=== PATIENT | male | born 1995 | race Caucasian/White ===

== ENCOUNTER 2017-06-01 08:59 | Emergency (ER) | payer OTHER ==
[2017-06-01] MEDS ORDERED: KETOROLAC 30 MG/ML 1 ML VIAL IVP STA (09:27)
[2017-06-01] MEDS ORDERED: SODIUM CHLORIDE 0.9% 1,000 ML IV ONE (09:27)
--- NOTE | 2017-06-01 09:31 | ED ---
Abdominal Pain HPI - General Chief Complaint: Abdominal Pain Stated Complaint: abd pain Time Seen by Provider: 06/01/17 09:09 Source: patient, RN notes reviewed Mode of arrival: ambulatory Limitations: no limitations - History of Present Illness Initial Comments: Patient is a 22-year-old male [facility] abdominal pain. Patient states he's been experiencing abdominal pain for the past month but has gotten worse and has traveled to his lower abdomen yesterday. Patient states while at work he began vomiting. Patient states he is having right upper quadrant, right lower quadrant and left upper quadrant pain. Patient states the pain comes in waves. Patient states he had diarrhea yesterday. Patient denies blood in the stools. Patient denies recent travel outside the country or trying new foods. Patient denies any nausea today. Patient states having 6 out of 10 pain currently. Patient denies fevers or chills. Patient denies any abdominal surgical history. Patient denies taking medications. Patient does state he smokes daily. Patient states he does drink daily. Patient states he drinks about a 24 pack of beer per day and will sometimes drink a half of a fifth of vodka afterwards. - Related Data Previous Rx's Medication Instructions Recorded Famotidine [Pepcid] 20 mg PO DAILY PRN #10 tablet 06/01/17 Allergies Allergy/AdvReac Type Severity Reaction Status Date / Time No Known Allergies Allergy Verified 06/01/17 10:39 Review of Systems ROS Statement: Those systems with pertinent positive or pertinent negative responses have been documented in the HPI. ROS Other: All systems not noted in ROS Statement are negative. Past Medical History Past Medical History: No Reported History History of Any Multi-Drug Resistant Organisms: None Reported Past Surgical History: No Surgical Hx Reported Past Psychological History: Anxiety Smoking Status: Current every day smoker Past Alcohol Use History: Occasional Past Drug Use History: Marijuana General Exam - General Exam Comments Initial Comments: laying in exam room, no distress. Limitations: no limitations General appearance: alert, in no apparent distress Head exam: Present: atraumatic, normocephalic, normal inspection Eye exam: Present: normal appearance ENT exam: Present: normal exam Neck exam: Present: normal inspection Respiratory exam: Present: normal lung sounds bilaterally. Absent: respiratory distress Cardiovascular Exam: Present: regular rate, normal rhythm, normal heart sounds GI/Abdominal exam: Present: soft, tenderness (RUQ, RLQ), normal bowel sounds. Absent: distended, guarding, rebound, rigid Extremities exam: Present: normal inspection Back exam: Present: normal inspection Neurological exam: Present: alert, oriented X3, CN II-XII intact, normal gait Psychiatric exam: Present: normal affect, normal mood Skin exam: Present: warm, dry, intact, normal color. Absent: rash Course Vital Signs 06/01/17 06/01/17 06/01/17 09:01 10:27 10:40 Temperature 97.8 F 98.4 F 98.3 F Pulse Rate 75 61 60 Respiratory 16 16 17 Rate Blood Pressure 140/80 140/78 145/78 O2 Sat by Pulse 100 100 100 Oximetry Medical Decision Making - Medical Decision Making Patient is 22-year-old male presents to the emergency room for evaluation of abdominal pain. Patient does admit to drinking a 24 pack of beer per day along with occasional half fifths of vodka afterwards. KUB x-ray significant for mild amount of fecal material in the colon. Patient be sent home with magnesium citrate. Patient counseled on alcohol abuse. Patient will be sent home with Pepcid for gastritis most likely from alcohol abuse. Advised patient to follow-up with primary care provider. Patient states he understands everything that was discussed with him. Return parameters discussed. Case discussed Dr. Raines. - Lab Data Result diagrams: 06/01/17 09:30 06/01/17 09:30 Lab Results 06/01/17 06/01/17 06/01/17 Range/Units 09:30 09:30 09:40 WBC 5.6 (4.0-11.0) k/uL RBC 5.94 H (4.30-5.90) m/uL Hgb 17.1 (13.0-17.5) gm/dL Hct 50.9 (39.0-53.0) % MCV 85.6 (80.0-100.0) fL MCH 28.8 (25.0-35.0) pg MCHC 33.6 (31.0-37.0) g/dL RDW 13.0 (11.5-15.5) % Plt Count 255 (150-450) k/uL Neutrophils % 64 % Lymphocytes % 27 % Monocytes % 5 % Eosinophils % 1 % Basophils % 0 % Neutrophils # 3.6 (1.3-7.7) k/uL Lymphocytes # 1.5 (1.0-4.8) k/uL Monocytes # 0.3 (0-1.0) k/uL Eosinophils # 0.1 (0-0.7) k/uL Basophils # 0.0 (0-0.2) k/uL Sodium 143 (137-145) mmol/L Potassium 4.4 (3.5-5.1) mmol/L Chloride 109 H (98-107) mmol/L Carbon Dioxide 24 (22-30) mmol/L Anion Gap 10 mmol/L BUN 17 (9-20) mg/dL Creatinine 0.90 (0.66-1.25) mg/dL Est GFR (MDRD) Af Amer >60 (>60 ml/min/1.73 sqM) Est GFR (MDRD) Non-Af >60 (>60 ml/min/1.73 sqM) Glucose 81 (74-99) mg/dL Calcium 9.2 (8.4-10.2) mg/dL Total Bilirubin 0.7 (0.2-1.3) mg/dL AST 24 (17-59) U/L ALT 34 (21-72) U/L Alkaline Phosphatase 86 (38-126) U/L Total Protein 6.6 (6.3-8.2) g/dL Albumin 4.3 (3.5-5.0) g/dL Amylase 42 (30-110) U/L Lipase 48 (23-300) U/L Urine Color Yellow Urine Appearance Clear (Clear) Urine pH 6.0 (5.0-8.0) Ur Specific [place] 1.012 (1.001-1.035) Urine Protein Negative (Negative) Urine Glucose (UA) Negative (Negative) Urine Ketones Negative (Negative) Urine Blood Negative (Negative) Urine Nitrite Negative (Negative) Urine Bilirubin Negative (Negative) Urine Urobilinogen <2.0 (<2.0) mg/dL Ur Leukocyte Esterase Negative (Negative) - Radiology Data Radiology results: report reviewed, image reviewed Disposition Clinical Impression: Constipation, Gastritis, Alcohol abuse Disposition: HOME SELF-CARE Condition: Good Instructions: Gastritis (ED), Constipation (ED), Abuse of Alcohol (ED) Additional Instructions: Take Pepcid daily. Please refrain from drinking alcohol. Take magnesium citrate. Drink plenty of water. Please follow up with primary care provider in 1-2 days. If any new symptom arises or symptoms worsen, return to ER as soon as possible. Prescriptions: Famotidine [Pepcid] 20 mg PO DAILY PRN #10 tablet PRN Reason: Pain Referrals: Malvin Haywood Jr, DO [Primary Care Provider] - 1-2 days Time of Disposition: 10:51
[2017-06-01 09:38] LABS: Basophils % (A) 0 %; CH 28.2; CHCM 33.1; Eosinophils # (A) 0.1 k/uL (0-0.7); Eosinophils % (A) 1 %; HCT 50.9 % (39.0-53.0); HDW 2.28; HGB 17.1 gm/dL (13.0-17.5); Luc # (Auto) 0.09; Luc % (Auto) 2; Lymphocytes # (A) 1.5 k/uL (1.0-4.8); Lymphocytes % (A) 27 %; MCH 28.8 pg (25.0-35.0); MCHC 33.6 g/dL (31.0-37.0); MCV 85.6 fL (80.0-100.0); Mean Platelet Volume 6.4; Monocytes # (A) 0.3 k/uL (0-1.0); Monocytes % (A) 5 %; Neutrophils # (A) 3.6 k/uL (1.3-7.7); Neutrophils % (A) 64 %; RBC 5.94 m/uL (4.30-5.90); WBC 5.6 k/uL (4.0-11.0); WBC (Perox) 5.32
[2017-06-01 09:52] LABS: ALT 34 U/L (21-72); AST 24 U/L (17-59); Alkaline Phosphatase 86 U/L (38-126); Amylase 42 U/L (30-110); Anion Gap 10 mmol/L; Blood Urea Nitrogen 17 mg/dL (9-20); Calcium 9.2 mg/dL (8.4-10.2); Carbon Dioxide 24 mmol/L (22-30); Chloride 109 mmol/L (98-107); Glucose 81 mg/dL (74-99); Non-African American GFR(MDRD) >60 (>60 ml/min/1.73 sqM); Potassium 4.4 mmol/L (3.5-5.1); Sodium 143 mmol/L (137-145); Total Bilirubin 0.7 mg/dL (0.2-1.3); Total Protein 6.6 g/dL (6.3-8.2)
[2017-06-01 09:58] LABS: Appearance,Urine Clear (Clear); Bilirubin,Urine Negative (Negative); Glucose,Urine (UA) Negative (Negative); Ketones,Urine Negative (Negative); Leukocyte Esterase,Urine Negative (Negative); Nitrite,Urine Negative (Negative); Protein,Urine Negative (Negative); Specific Gravity,Urine 1.012 (1.001-1.035); UA Billing (MACRO vs. MICRO) CHEM; Urobilinogen,Urine <2.0 mg/dL (<2.0)
--- NOTE | 2017-06-01 10:17 | XR ---
EXAMINATION TYPE: XR KUB DATE OF EXAM: 06/01/2017 10:11 AM CLINICAL HISTORY: Abdominal pain for 3 months. TECHNIQUE: 2 upright KUB images of the abdomen are obtained. COMPARISON: Abdominal x-ray November 26, 2012. FINDINGS: Gas is seen in nondistended stomach. Scattered gas is seen in non-distended small bowel loo ps. Gas and fecal material is seen in non-distended colon. There is no visceromegaly, pneumoperitoneum, or abnormal calcification appreciated. The lung bases ar e clear and the osseous structures are intact. IMPRESSION: Overall nonobstructive bowel gas pattern.
[2017-06-01 10:40] VITALS: BP 145/78; PULSE 60; RESP 17; TEMP 98.3
[2017-06-01] MEDS ORDERED: MAGNESIUM CITRATE 296 ML BOTTLE PO ONE (10:50)
== END 2017-06-01 11:13 | disposition home or self-care (01) ==
LOC: EC 08:59
DX: K29.20 Alcoholic gastritis without bleeding (principal); F10.10 Alcohol abuse, uncomplicated; K59.00 Constipation, unspecified; F17.200 Nicotine dependence, unspecified, uncomplicated
CPT/HCPCS: 80053; 82150; 83690; 85025; 81003; 74000; 99284; 96374; 96361; J1885

== ENCOUNTER 2018-05-25 23:33 | Emergency (ER) | payer OTHER ==
[2018-05-25 23:47] VITALS: TEMP 98.2
[2018-05-26] MEDS ORDERED: diphenhydrAMINE 50 MG CAP PO STA (00:28)
[2018-05-26] MEDS ORDERED: LORazepam 1 MG TAB PO STA (00:28)
[2018-05-26 00:30] LABS: Appearance,Urine Clear (Clear); Bilirubin,Urine Negative (Negative); Blood,Urine Negative (Negative); Color,Urine Colorless; Glucose,Urine (UA) Negative (Negative); Ketones,Urine Negative (Negative); Leukocyte Esterase,Urine Negative (Negative); Nitrite,Urine Negative (Negative); Protein,Urine Negative (Negative); Specific Gravity,Urine 1.003 (1.001-1.035); Urobilinogen,Urine <2.0 mg/dL (<2.0)
--- NOTE | 2018-05-26 00:30 | ED ---
General Adult HPI - General Chief complaint: Psychiatric Symptoms Stated complaint: Mental Health Time Seen by Provider: 05/25/18 23:51 Source: police, RN notes reviewed, old records reviewed Mode of arrival: ambulatory Limitations: no limitations - History of Present Illness Initial comments: This is a 23-year-old male the ER for evaluation. Patient's brought in by PD for evaluation regarding mental health, positive alcohol intoxication, belligerent, not acting and responding appropriately - Related Data Previous Rx's Medication Instructions Recorded Famotidine [Pepcid] 20 mg PO DAILY PRN #10 tablet 06/01/17 Allergies Allergy/AdvReac Type Severity Reaction Status Date / Time No Known Allergies Allergy Verified 05/25/18 23:47 Review of Systems ROS Statement: Those systems with pertinent positive or pertinent negative responses have been documented in the HPI. ROS Other: All systems not noted in ROS Statement are negative. Past Medical History Past Medical History: No Reported History History of Any Multi-Drug Resistant Organisms: None Reported Past Surgical History: No Surgical Hx Reported Past Psychological History: Anxiety Smoking Status: Current every day smoker Past Alcohol Use History: Occasional Past Drug Use History: Marijuana General Exam Limitations: no limitations General appearance: alert, in no apparent distress, appears intoxicated Head exam: Present: atraumatic, normocephalic, normal inspection Eye exam: Present: normal appearance, PERRL, EOMI. Absent: scleral icterus, conjunctival injection, periorbital swelling ENT exam: Present: normal exam, mucous membranes moist Neck exam: Present: normal inspection. Absent: tenderness, meningismus, lymphadenopathy Respiratory exam: Present: normal lung sounds bilaterally. Absent: respiratory distress, wheezes, rales, rhonchi, stridor Cardiovascular Exam: Present: regular rate, normal rhythm, normal heart sounds. Absent: systolic murmur, diastolic murmur, rubs, gallop, clicks GI/Abdominal exam: Present: soft, normal bowel sounds. Absent: distended, tenderness, guarding, rebound, rigid Extremities exam: Present: normal inspection, full ROM, normal capillary refill. Absent: tenderness, pedal edema, joint swelling, calf tenderness Back exam: Present: normal inspection Neurological exam: Present: alert, oriented X3, CN II-XII intact Psychiatric exam: Present: normal affect, normal mood Skin exam: Present: warm, dry, intact, normal color. Absent: rash Course Vital Signs 05/25/18 23:42 Temperature 98.2 F Pulse Rate 109 H Respiratory 20 Rate Blood Pressure 144/85 O2 Sat by Pulse 100 Oximetry Medical Decision Making - Lab Data Lab Results 05/26/18 Range/Units 00:18 Urine Color Colorless Urine Appearance Clear (Clear) Urine pH 6.0 (5.0-8.0) Ur Specific [place] 1.003 (1.001-1.035) Urine Protein Negative (Negative) Urine Glucose (UA) Negative (Negative) Urine Ketones Negative (Negative) Urine Blood Negative (Negative) Urine Nitrite Negative (Negative) Urine Bilirubin Negative (Negative) Urine Urobilinogen <2.0 (<2.0) mg/dL Ur Leukocyte Esterase Negative (Negative) Urine Opiates Screen Not Detected (NotDetected) Ur Oxycodone Screen Not Detected (NotDetected) Urine Methadone Screen Not Detected (NotDetected) Ur Propoxyphene Screen Not Detected (NotDetected) Ur Barbiturates Screen Not Detected (NotDetected) U Tricyclic Antidepress Not Detected (NotDetected) Ur Phencyclidine Scrn Not Detected (NotDetected) Ur Amphetamines Screen Not Detected (NotDetected) U Methamphetamines Scrn Not Detected (NotDetected) U Benzodiazepines Scrn Not Detected (NotDetected) Urine Cocaine Screen Not Detected (NotDetected) U Marijuana (THC) Screen Detected H (NotDetected) Disposition Clinical Impression: Acute anxiety Disposition: HOME SELF-CARE Condition: Good Instructions: Alcohol Intoxication (ED) Referrals: Malvin Haywood Jr, DO [Primary Care Provider] - 1-2 days
[2018-05-26] MEDS ORDERED: diphenhydrAMINE 50 MG/ML 1 ML VIAL IM STA (00:36)
[2018-05-26] MEDS ORDERED: LORazepam 2 MG/ML INJ IM STA (00:36)
[2018-05-26 00:41] LABS: Amphetamine Screen,Urine Not Detected (NotDetected); Barbiturate Screen,Urine Not Detected (NotDetected); Benzodiazepines Screen,Urine Not Detected (NotDetected); Cocaine Screen,Urine Not Detected (NotDetected); Methadone Screen, Urine Not Detected (NotDetected); Opiate Screen,Urine Not Detected (NotDetected); Oxycodone Screen, Urine Not Detected (NotDetected); Phencyclidine Screen,Urine Not Detected (NotDetected); Tricyclic Antidepressant,Urine Not Detected (NotDetected); Urn Cannabinoid Scrn Detected (NotDetected)
[2018-05-26 04:55] VITALS: BP 99/50; PULSE 66; RESP 16
== END 2018-05-26 04:58 | disposition home or self-care (01) ==
LOC: EC 23:33
DX: F41.9 Anxiety disorder, unspecified (principal); F10.129 Alcohol abuse with intoxication, unspecified; R45.6 Violent behavior; F17.200 Nicotine dependence, unspecified, uncomplicated
CPT/HCPCS: 82075; 81003; 80306; 99284; 96372 ×2; J2060; J1200

== ENCOUNTER 2021-10-07 14:39 | Emergency (ER) | payer OTHER ==
[2021-10-07 16:05] VITALS: BP 122/70; PULSE 72; RESP 17; TEMP 98.2
--- NOTE | 2021-10-07 16:37 | ED ---
Wound/Laceration HPI - General Chief Complaint: Wound/Laceration Stated Complaint: stitches infected Time Seen by Provider: 10/07/21 15:42 Source: patient, RN notes reviewed Mode of arrival: ambulatory Limitations: no limitations - History of Present Illness Initial Comments: Patient is a 26-year-old male that presents to the emergency department with 3 -4-week-old sutures in his left index and middle finger. He notes he had a washout and department at [facility] with a hand specialist by the name of Dr. Gill. Patient notes that he's been unable to get down to [place] for a follow-up visit. Patient denied any other symptoms or complaints. He notes that the sutures just appear to be embedding. He denied any chest pain first breath headache nausea vomiting diarrhea constipation fever fatigue chills. - Related Data Previous Rx's Medication Instructions Recorded Famotidine [Pepcid] 20 mg PO DAILY PRN #10 tablet 06/01/17 Allergies Allergy/AdvReac Type Severity Reaction Status Date / Time No Known Allergies Allergy Verified 10/07/21 15:11 Review of Systems ROS Statement: Those systems with pertinent positive or pertinent negative responses have been documented in the HPI. ROS Other: All systems not noted in ROS Statement are negative. Past Medical History Past Medical History: No Reported History History of Any Multi-Drug Resistant Organisms: MRSA Date of last positivie culture/infection: September 2021 Past Surgical History: No Surgical Hx Reported Additional Past Surgical History / Comment(s): left hand surgery to drain infection Past Psychological History: Anxiety Smoking Status: Current every day smoker Past Alcohol Use History: Daily Past Drug Use History: Marijuana General Exam Limitations: no limitations General appearance: alert, in no apparent distress Head exam: Present: atraumatic, normocephalic, normal inspection Eye exam: Present: normal appearance, PERRL, EOMI. Absent: scleral icterus, conjunctival injection, periorbital swelling ENT exam: Present: normal exam, mucous membranes moist Neck exam: Present: normal inspection. Absent: tenderness, meningismus, lymphadenopathy Respiratory exam: Present: normal lung sounds bilaterally. Absent: respiratory distress, wheezes, rales, rhonchi, stridor Cardiovascular Exam: Present: regular rate, normal rhythm, normal heart sounds. Absent: systolic murmur, diastolic murmur, rubs, gallop, clicks Extremities exam: Present: normal inspection, full ROM, normal capillary refill. Absent: tenderness, pedal edema, joint swelling, calf tenderness Neurological exam: Present: alert, oriented X3 Psychiatric exam: Present: normal affect, normal mood Skin exam: Present: warm, dry, intact, normal color, other (Several healed surgical incisions on the left index and middle finger, no signs or symptoms of infection.). Absent: rash Course Vital Signs 10/07/21 16:05 Temperature 98.2 F Pulse Rate 72 Respiratory 17 Rate Blood Pressure 122/70 O2 Sat by Pulse 99 Oximetry Medical Decision Making - Medical Decision Making 26-year-old male with surgical incision sutures asking for them to be removed. Patient's hand surgeon was contacted. Dr. Gill notes that patient needs to follow-up in office to have sutures removed and surgical incision sites evaluated. Patient was informed of this and is agreeable with discharge home with follow-up to hand surgeon. Case discussed with Dr. Tracey, patient can discharge home. Disposition Clinical Impression: Visit for suture removal Disposition: HOME SELF-CARE Condition: Stable Additional Instructions: Please return to the Emergency Department if symptoms worsen or any other concerns. Follow-up with hand surgeon as soon as possible. Is patient prescribed a controlled substance at d/c from ED?: No Referrals: None,Stated [Primary Care Provider] - 1-2 days Time of Disposition: 16:36
== END 2021-10-07 16:40 | disposition home or self-care (01) ==
LOC: EC 14:39
DX: Z48.02 Encounter for removal of sutures (principal); F41.9 Anxiety disorder, unspecified; F17.200 Nicotine dependence, unspecified, uncomplicated; F12.90 Cannabis use, unspecified, uncomplicated; Z72.89 Other problems related to lifestyle
CPT/HCPCS: 99281

== ENCOUNTER 2022-01-23 00:09 | Emergency (ER) | payer OTHER ==
[2022-01-23 00:34] VITALS: RESP 18
--- NOTE | 2022-01-23 01:11 | ED ---
Psych HPI - General Chief Complaint: Psychiatric Symptoms Stated Complaint: Mental Health Time Seen by Provider: 01/23/22 00:37 Source: patient, RN notes reviewed, old records reviewed Mode of arrival: ambulatory Limitations: no limitations - History of Present Illness Initial Comments: This is a 26-year-old male resents presents to the ER for evaluation of psychiatric illness. Patient is petition by the police psychiatric evaluation not participating history taking currently MD Complaint: suicidal ideation, feels depressed -: unknown Associated Psychiatric Symptoms: depression, suicidal ideation History of same: No Improves With: none Worsens With: none Context: significant life stressor Associated Symptoms: denies other symptoms Treatments Prior to Arrival: placed on mental health hold - Related Data Previous Rx's Medication Instructions Recorded Famotidine [Pepcid] 20 mg PO DAILY PRN #10 tablet 06/01/17 Allergies Allergy/AdvReac Type Severity Reaction Status Date / Time No Known Allergies Allergy Verified 01/23/22 00:34 Review of Systems ROS Statement: Those systems with pertinent positive or pertinent negative responses have been documented in the HPI. ROS Other: All systems not noted in ROS Statement are negative. Past Medical History Past Medical History: No Reported History, Hypertension Additional Past Medical History / Comment(s): CELLULITIS, History of Any Multi-Drug Resistant Organisms: MRSA Date of last positivie culture/infection: September 2021 Past Surgical History: No Surgical Hx Reported Additional Past Surgical History / Comment(s): left hand surgery to drain infection Past Psychological History: Anxiety Smoking Status: Current every day smoker Past Alcohol Use History: Daily Past Drug Use History: Marijuana General Exam Limitations: no limitations General appearance: alert, in no apparent distress Head exam: Present: atraumatic, normocephalic, normal inspection Eye exam: Present: normal appearance, PERRL, EOMI. Absent: scleral icterus, conjunctival injection, periorbital swelling ENT exam: Present: normal exam, mucous membranes moist Neck exam: Present: normal inspection. Absent: tenderness, meningismus, lymphadenopathy Respiratory exam: Present: normal lung sounds bilaterally. Absent: respiratory distress, wheezes, rales, rhonchi, stridor Cardiovascular Exam: Present: regular rate, normal rhythm, normal heart sounds. Absent: systolic murmur, diastolic murmur, rubs, gallop, clicks GI/Abdominal exam: Present: soft, normal bowel sounds. Absent: distended, tenderness, guarding, rebound, rigid Extremities exam: Present: normal inspection, full ROM, normal capillary refill. Absent: tenderness, pedal edema, joint swelling, calf tenderness Back exam: Present: normal inspection Neurological exam: Present: alert, oriented X3, CN II-XII intact Psychiatric exam: Present: normal affect, normal mood Skin exam: Present: warm, dry, intact, normal color. Absent: rash Course Vital Signs 01/23/22 00:30 Temperature 97.8 F Pulse Rate 70 Respiratory 18 Rate Blood Pressure 139/85 O2 Sat by Pulse 98 Oximetry - Reevaluation(s) Reevaluation #1: 01/23/22 02:22 Medical records reviewed 01/23/22 02:22 Medical clear for psychiatric evaluation Medical Decision Making - Medical Decision Making 26 male who was seen and evaluated by psychiatry here in the ER. Patient is not currently homicidal or suicidal contract for safety and can be discharged home Disposition Clinical Impression: Adjustment reaction of adult life, Depression Disposition: HOME SELF-CARE Condition: Fair Instructions (If sedation given, give patient instructions): Mood Disorders (ED) Is patient prescribed a controlled substance at d/c from ED?: No Referrals: None,Stated [Primary Care Provider] - 1-2 days
[2022-01-23 02:54] VITALS: BP 128/78; PULSE 74; TEMP 98.7
== END 2022-01-23 03:02 | disposition home or self-care (01) ==
LOC: EC 00:09
DX: F43.21 Adjustment disorder with depressed mood (principal); F41.9 Anxiety disorder, unspecified; F17.200 Nicotine dependence, unspecified, uncomplicated; F12.90 Cannabis use, unspecified, uncomplicated; Z79.899 Other long term (current) drug therapy
CPT/HCPCS: 82075; 99284

== ENCOUNTER 2022-03-10 09:13 | Emergency (ER) | payer OTHER ==
[2022-03-10 09:31] VITALS: BP 130/64; PULSE 120; RESP 18; TEMP 98
[2022-03-10] MEDS ORDERED: SULFAMETHOX-TMP 800-160MG 1 EACH TAB PO STA (10:15)
--- NOTE | 2022-03-10 10:30 | ED ---
Skin/Abscess/FB HPI - General Chief complaint: Skin/Abscess/Foreign Body Stated complaint: Spider Bite Time Seen by Provider: 03/10/22 10:04 Source: patient Mode of arrival: ambulatory Limitations: no limitations - History of Present Illness Initial comments: Patient is a 26-year-old male presenting with chief complaint of abscess to the back of the neck. Patient states that he has a painful, red, swollen abscess on the back of his neck that he noticed 3 days ago. Patient states he believes it was spider bite as there were 2 small indents in the center. Patient states that last night he was able to drain the wound. He notes pain when laying on his back, admits to pain with range of motion of the neck located at the center of the wound. Denies fever, chills, nausea, vomiting, headache, hearing or vision changes, dysphasia, shortness of breath, chest pain, dizziness, weakness. - Related Data Previous Rx's Medication Instructions Recorded Famotidine [Pepcid] 20 mg PO DAILY PRN #10 tablet 06/01/17 Sulfamethox-Tmp 800-160Mg [Bactrim 1 tab PO Q12HR 7 Days #14 tab 03/10/22 DS 800-160 mg] Allergies Allergy/AdvReac Type Severity Reaction Status Date / Time No Known Allergies Allergy Verified 03/10/22 09:30 Review of Systems ROS Statement: Those systems with pertinent positive or pertinent negative responses have been documented in the HPI. ROS Other: All systems not noted in ROS Statement are negative. Past Medical History Past Medical History: No Reported History, Hypertension Additional Past Medical History / Comment(s): CELLULITIS, History of Any Multi-Drug Resistant Organisms: MRSA Date of last positivie culture/infection: September 2021 Past Surgical History: No Surgical Hx Reported Additional Past Surgical History / Comment(s): left hand surgery to drain infection Past Psychological History: Anxiety Smoking Status: Current every day smoker Past Alcohol Use History: Daily Past Drug Use History: Marijuana General Exam Limitations: no limitations General appearance: alert, in no apparent distress Head exam: Present: atraumatic, normocephalic, normal inspection Eye exam: Present: normal appearance, EOMI. Absent: scleral icterus Neck exam: Present: full ROM, other (5 cm x 5 cm indurated abscess patient admits to previously draining. The center is scabbed. Patient admits to pain when pressure is applied and with certain movements). Absent: meningismus Respiratory exam: Present: normal lung sounds bilaterally. Absent: respiratory distress, wheezes, rales, rhonchi, stridor Cardiovascular Exam: Present: regular rate, normal rhythm, normal heart sounds. Absent: systolic murmur, diastolic murmur, rubs, gallop, clicks Neurological exam: Present: alert, oriented X3, CN II-XII intact Psychiatric exam: Present: normal affect, normal mood Expanded Type of lesion: Present: abscess Distribution of rash: neck Description of rash: Present: size (5 cm x 5 cm), tenderness, erythematous, swelling, indurated. Absent: fluctuant Course Vital Signs 03/10/22 03/10/22 09:30 11:11 Temperature 98 F 98 F Pulse Rate 120 H 120 H Respiratory 18 18 Rate Blood Pressure 130/64 130/64 O2 Sat by Pulse 98 98 Oximetry Medical Decision Making - Medical Decision Making Patient is a 26-year-old male presenting with chief abscess to the back of the neck. Patient states that 3 days ago he noted a tender swollen spot on the back of the neck, on inspection he suspected was a spider bite due to small indentations in the center. Patient states that yesterday he was able to drain as it came to a head. On examination there is a 5 cm x 5 cm indurated abscess on the back of the neck. Patient experiences pain with certain movement due to the pressure applied to the abscess. He is afebrile and on reassessment he is not tachycardic. Unable to drain the abscess today. Patient was given first dose of Bactrim double strength and Tylenol for pain control. Patient was prescribed Bactrim double strength 2 times a day for 7 days. Continue to utilize Motrin, Tylenol, warm compresses. Follow-up with primary care in 1-2 days. Report back to ER if any worsening symptoms. Educated the patient on return parameters and answered all questions. Patient conveyed verbal understanding and agreed to the plan. I discussed this case with my attending Dr. Parker. Disposition Clinical Impression: Abscess Disposition: HOME SELF-CARE Condition: Good Instructions (If sedation given, give patient instructions): Abscess (ED) Additional Instructions: Take medications as prescribed. Utilize Motrin, Tylenol, hot compresses for symptomatic relief. Follow-up with primary care in 1-2 days. Report back to ER if any worsening symptoms, including but not limited to fever, chills, neck stiffness, headache, vision changes, back pain. Prescriptions: Sulfamethox-Tmp 800-160Mg [Bactrim DS 800-160 mg] 1 tab PO Q12HR 7 Days #14 tab Is patient prescribed a controlled substance at d/c from ED?: No Referrals: None,Stated [Primary Care Provider] - 1-2 days Time of Disposition: 10:58
[2022-03-10] MEDS ORDERED: ACETAMINOPHEN TAB 325 MG TAB PO STA (10:42)
== END 2022-03-10 11:11 | disposition home or self-care (01) ==
LOC: EC 09:13
DX: L02.11 Cutaneous abscess of neck (principal); F17.200 Nicotine dependence, unspecified, uncomplicated; F12.90 Cannabis use, unspecified, uncomplicated
CPT/HCPCS: 99282

== ENCOUNTER 2022-05-16 19:24 | Emergency (ER) | payer OTHER ==
[2022-05-16 19:38] VITALS: BP 137/78; PULSE 104; RESP 20; TEMP 98.6
[2022-05-16] MEDS ORDERED: HYDROcodone/APAP 5-325MG 1 EACH TAB PO STA (20:06)
[2022-05-16] MEDS ORDERED: KETOROLAC 15 MG/ML 1 ML VIAL IM STA (20:06)
--- NOTE | 2022-05-16 20:09 | ED ---
Upper Extremity HPI - General Chief Complaint: Extremity Injury, Upper Stated Complaint: R shoulder unknown injury Time Seen by Provider: 05/16/22 19:54 Source: patient, RN notes reviewed Mode of arrival: ambulatory Limitations: no limitations - History of Present Illness Initial Comments: [id number] 27-year-old male who presents to emergency department complaining of pain to his right shoulder. Patient states he went through his pants up this morning and felt pain in the right shoulder which does radiate into the right trapezius area. Pain is exacerbated by movement, alleviated somewhat by rest. Patient has a makeshift sling that he fabricated at home. Patient denies any previous shoulder problems. No headache, no fever or chills, no changes in vision or hearing, no sore throat or difficulty with speech, no neck pain, no chest pain or shortness of breath, no abdominal pain, no nausea or vomiting, no changes in urination or bowel movements, no numbness or tingling, no skin rashes or lesions. MD Complaint: Injury to:: right, shoulder Other Extremity Injury: Shoulder: Right Handedness: right Place: home - Related Data Previous Rx's Medication Instructions Recorded Famotidine [Pepcid] 20 mg PO DAILY PRN #10 tablet 06/01/17 Sulfamethox-Tmp 800-160Mg [Bactrim 1 tab PO Q12HR 7 Days #14 tab 03/10/22 DS 800-160 mg] Cyclobenzaprine [Flexeril] 10 mg PO TID PRN #20 tab 05/16/22 Ibuprofen [Motrin] 600 mg PO Q8HR PRN #30 tab 05/16/22 Allergies Allergy/AdvReac Type Severity Reaction Status Date / Time No Known Allergies Allergy Verified 05/16/22 19:38 Review of Systems ROS Statement: Those systems with pertinent positive or pertinent negative responses have been documented in the HPI. ROS Other: All systems not noted in ROS Statement are negative. Past Medical History Past Medical History: No Reported History, Hypertension Additional Past Medical History / Comment(s): CELLULITIS, History of Any Multi-Drug Resistant Organisms: MRSA Date of last positivie culture/infection: September 2021 Past Surgical History: No Surgical Hx Reported Additional Past Surgical History / Comment(s): left hand surgery to drain infection Past Psychological History: Anxiety Smoking Status: Current every day smoker Past Alcohol Use History: Daily Past Drug Use History: Marijuana General Exam - General Exam Comments Initial Comments: Nontoxic appearing male presents with right shoulder pain, Limitations: no limitations General appearance: alert, in distress (Right shoulder pain) Head exam: Present: atraumatic, normocephalic, normal inspection Eye exam: Present: normal appearance, PERRL, EOMI. Absent: scleral icterus, conjunctival injection, periorbital swelling ENT exam: Present: normal exam, mucous membranes moist Neck exam: Present: normal inspection, full ROM. Absent: tenderness, meningismus, lymphadenopathy Respiratory exam: Present: normal lung sounds bilaterally. Absent: respiratory distress, wheezes, rales, rhonchi, stridor Cardiovascular Exam: Present: regular rate, normal rhythm, normal heart sounds. Absent: systolic murmur, diastolic murmur, rubs, gallop, clicks GI/Abdominal exam: Present: soft, normal bowel sounds. Absent: distended, tenderness, guarding, rebound, rigid Extremities exam: Present: normal inspection, tenderness (Patient has soft tissue tenderness about the right shoulder, also sensitively and the anterior aspect of the shoulder and the proximal bicipital tendon insertion area. No erythema. No break in skin integrity. No edema.), normal capillary refill, other (No bony point tenderness.). Absent: full ROM (Range of motion limited with regards to right shoulder. Limited in all planes.), joint swelling (No proximal or distal tenderness, full cervical range of motion, full range motion at the elbow. Distal pulses are intact), calf tenderness Back exam: Present: normal inspection Neurological exam: Present: alert, oriented X3, CN II-XII intact Psychiatric exam: Present: normal affect, normal mood Skin exam: Present: warm, dry, intact, normal color. Absent: rash Course Vital Signs 05/16/22 19:35 Temperature 98.6 F Pulse Rate 104 H Respiratory 20 Rate Blood Pressure 137/78 O2 Sat by Pulse 99 Oximetry Medical Decision Making - Medical Decision Making Presents to symptomology consistent with right shoulder strain, possible rotator cuff strain versus proximal bicipital tendinitis. Range of motion limited secondary to pain. No evidence of infectious process or vascular compromise. Patient was told to return to the ER for any signs or symptoms worsen. Told to return immediately if any other problems arise. All questions answered. Treatment plan discussed. Patient in agreement Every effort has been made to ensure accuracy of this dictation. However, due to the limitations of electronic medical records and dictation devices, errors in charting still occur. Supervising physicians Dr. Pearl - Radiology Data Radiology results: report reviewed, image reviewed Disposition Clinical Impression: Right shoulder strain Disposition: HOME SELF-CARE Condition: Good Instructions (If sedation given, give patient instructions): Rotator Cuff Injury (ED) Additional Instructions: Home the morning and set up a follow-up appointment with orthopedics. Make sure you do not wear the sling all the time. Take the sling off and moved her arm through gentle range of motion. Apply ice 20 minutes on and off for times daily. Follow-up with your regular physician as directed. Return to the ER immediately if any symptoms worsen, new symptoms arise, or any other problems develop. Is patient prescribed a controlled substance at d/c from ED?: No Referrals: Alexis Mays MD [STAFF PHYSICIAN] - 05/22/22 Time of Disposition: 21:03
--- NOTE | 2022-05-16 20:10 | XR ---
EXAMINATION TYPE: XR shoulder complete RT DATE OF EXAM: 05/16/2022 COMPARISON: NONE HISTORY: Pain TECHNIQUE: Shoulder examined in 3 projections FINDINGS: The humeral head articulates with the glenoid. The acromio-clavicular junction is normal. No acute fractures or dislocations are evident. A follow up study can be performed 7-10 days from acute trauma for continued pain. IMPRESSION: 1. Normal three-view right Shoulder
[2022-05-16] MEDS ORDERED: IBUPROFEN 600 MG STARTER PACK 4 TAB BTL PO STA (20:59)
[2022-05-16] MEDS ORDERED: CYCLOBENZAPRINE 10MG STARTER 3 TAB BTL PO STA (20:59)
[2022-05-16] MEDS ORDERED: ACET/COD 300 MG/30 MG STARTER PACK 6 TAB BTL PO STA (20:59)
== END 2022-05-16 21:36 | disposition home or self-care (01) ==
LOC: EC 19:24
DX: S46.911A Strain of unspecified muscle, fascia and tendon at shoulder and upper arm level, right arm, initial encounter (principal); F17.200 Nicotine dependence, unspecified, uncomplicated; X58.XXXA Exposure to other specified factors, initial encounter
CPT/HCPCS: 73030; 99283; 96372; J1885

== ENCOUNTER 2022-06-14 17:23 | Inpatient (IN) | payer MEDICAID, OTHER ==
[2022-06-14] MEDS ORDERED: LORazepam 2 MG/ML INJ IV STA (18:45)
[2022-06-14 18:53] LABS: Basophils % (A) 1 %; Eosinophils # (A) 0.1 k/uL (0-0.7); Eosinophils % (A) 1 %; HCT 48.8 % (39.0-53.0); HGB 16.2 gm/dL (13.0-17.5); Lymphocytes # (A) 1.7 k/uL (1.0-4.8); Lymphocytes % (A) 26 %; MCH 27.7 pg (25.0-35.0); MCHC 33.2 g/dL (31.0-37.0); MCV 83.6 fL (80.0-100.0); Mean Platelet Volume 6.8; Monocytes # (A) 0.6 k/uL (0-1.0); Monocytes % (A) 9 %; Neutrophils % (A) 61 %; Platelet Count 251 k/uL (150-450); RBC 5.84 m/uL (4.30-5.90); RDW 13.9 % (11.5-15.5); WBC 6.5 k/uL (3.8-10.6)
[2022-06-14 19:02] LABS: African American GFR (CKD) >90 (>60 ml/min/1.73 sqM); Alcohol <10 mg/dL; Anion Gap 14 mmol/L; Blood Urea Nitrogen 23 mg/dL (9-20); Calcium 9.8 mg/dL (8.4-10.2); Carbon Dioxide 22 mmol/L (22-30); Chloride 100 mmol/L (98-107); Glucose 84 mg/dL (74-99); Non-African American GFR(CKD) >90 (>60 ml/min/1.73 sqM); Potassium 4.3 mmol/L (3.5-5.1); Sodium 136 mmol/L (137-145)
--- NOTE | 2022-06-14 19:40 | ED ---
General Adult HPI - General Chief complaint: Psychiatric Symptoms Stated complaint: Mental health Time Seen by Provider: 06/14/22 17:53 Source: patient, RN notes reviewed, old records reviewed Mode of arrival: ambulatory Limitations: no limitations - History of Present Illness Initial comments: Patient is a 27-year-old male with no significant past medical history, family medical history of schizophrenia, who presents in custody from [facility] for psych ev aluation. Patient has a reticulocyte. Has pressured speech. States she is having auditory and visual hallucinations. He endorses suicidal ideations but no attempts. Denies homicidal ideations, plans, attempts. He states he slammed his head multiple times into a cement driveway last night. He has not provide much information. He seems to be having some delusions in addition to the rashes speech. There is concern for acute psychosis. Patient presents petitioned in place custody. The patient states "inmate is highly agitated, labile, hostile, expressing auditory hallucinations, talking to self, self abusive." No previously diagnosed psychiatric illness. Endorses prior history of po lysubstance abuse. He has been clean for 3 years. Endorses occasional alcohol. - Related Data Previous Rx's Medication Instructions Recorded Cyclobenzaprine [Flexeril] 10 mg PO TID PRN #20 tab 05/16/22 Ibuprofen [Motrin] 600 mg PO Q8HR PRN #30 tab 05/16/22 Allergies Allergy/AdvReac Type Severity Reaction Status Date / Time No Known Allergies Allergy Verified 06/14/22 18:36 Review of Systems ROS Statement: Those systems with pertinent positive or pertinent negative responses have been documented in the HPI. Review of Systems: CONST: Denies fever EYES: Denies blurry vision ENT: Denies nasal congestion C/V: Denies Chest pain RESP: Denies shortness of breath GI: Denies abdominal pain : Denies dysuria SKIN: Denies rash. MSK: Denies joint pain. NEURO: Denies headache PSYCH: Denies homicidal ideations/plans/attempts. Endorses both visual and auditory hallucinations. He endorses suicidal ideations. Denies attempts or plans. ROS Other: All systems not noted in ROS Statement are negative. Past Medical History Past Medical History: No Reported History, Hypertension Additional Past Medical History / Comment(s): CELLULITIS, History of Any Multi-Drug Resistant Organisms: MRSA Date of last positivie culture/infection: September 2021 Past Surgical History: No Surgical Hx Reported Additional Past Surgical History / Comment(s): left hand surgery to drain infection Past Psychological History: Anxiety Smoking Status: Current every day smoker Past Alcohol Use History: Daily Past Drug Use History: Marijuana General Exam - General Exam Comments Initial Comments: General: Appears agitated. Pressured speech. Possibly responding to internal stimuli. HEAD: Normal with no signs of head trauma. EYES: PERRLA, EOMI, conjunctiva normal, no discharge. Pupils are 2 mm and equal bilaterally. ENT: Hearing grossly intact, normal oropharynx. RESPIRATORY: Clear breath sounds bilaterally. No wheezes, rales, or rhonchi. C/V: Tachycardic with a regular rhythm. S1 and S2 auscultated. Peripheral pulses 2+ and intact throughout. ABD: Abd is soft, nontender, nondistended EXT: Normal range of motion, no obvious deformity no midline cervical, thoracic, lumbar spine tenderness to palpation. SKIN: No rashes or lesions observed on exposed skin. Mild bruising located o joel the posterior scalp, where he states he has had against the wall. Mild contusion over the forehead. NEURO: Alert and oriented x 3. No focal sensory or strength deficits. Limitations: no limitations Course Vital Signs 06/14/22 06/14/22 17:32 21:20 Temperature 98.2 F Pulse Rate 115 H Respiratory 22 16 Rate Blood Pressure 151/104 O2 Sat by Pulse 100 96 Oximetry Medical Decision Making - Medical Decision Making Based on the patient's presentation and physical exam, does appear the patient is having acute psychosis. Sitter was ordered. Suicide precautions were placed. Has no history of psychiatric illness, and therefore we will obtain basic labs as well as CT brain and C-spine with the recent self injuring behavior. He'll be given Ativan as he states he is extremely anxious. Patient is in agreement this plan. Vital signs are within normal limits. Slightly tachycardic, likely secondary to agitation. Laboratory studies are remarkable for a negative alcohol level. UDS is pending at this time. CT imaging shows no acute intracranial process and no acute cervical spine injury. At this time patient is medically cleared for evaluation by psychiatry. Disposition is pending psychiatric evaluation. He remains in police custody at this time. EPS evaluated the patient. Determined he needs inpatient psychiatric criteria. Certification was completed by myself. Patient was admitted to inpatient psych in stable condition. - Lab Data Result diagrams: 06/14/22 18:45 06/14/22 18:45 Lab Results 06/14/22 06/14/22 06/14/22 Range/Units 18:45 18:45 20:36 WBC 6.5 (3.8-10.6) k/uL RBC 5.84 (4.30-5.90) m/uL Hgb 16.2 (13.0-17.5) gm/dL Hct 48.8 (39.0-53.0) % MCV 83.6 (80.0-100.0) fL MCH 27.7 (25.0-35.0) pg MCHC 33.2 (31.0-37.0) g/dL RDW 13.9 (11.5-15.5) % Plt Count 251 (150-450) k/uL MPV 6.8 Neutrophils % 61 % Lymphocytes % 26 % Monocytes % 9 % Eosinophils % 1 % Basophils % 1 % Neutrophils # 4.0 (1.3-7.7) k/uL Lymphocytes # 1.7 (1.0-4.8) k/uL Monocytes # 0.6 (0-1.0) k/uL Eosinophils # 0.1 (0-0.7) k/uL Basophils # 0.0 (0-0.2) k/uL Sodium 136 L (137-145) mmol/L Potassium 4.3 (3.5-5.1) mmol/L Chloride 100 (98-107) mmol/L Carbon Dioxide 22 (22-30) mmol/L Anion Gap 14 mmol/L BUN 23 H (9-20) mg/dL Creatinine 1.05 (0.66-1.25) mg/dL Est GFR (CKD-EPI)AfAm >90 (>60 ml/min/1.73 sqM) Est GFR (CKD-EPI)NonAf >90 (>60 ml/min/1.73 sqM) Glucose 84 (74-99) mg/dL Calcium 9.8 (8.4-10.2) mg/dL Serum Alcohol <10 mg/dL Coronavirus (PCR) Not Detected (Not Detectd) Disposition Clinical Impression: Encounter for psychiatric assessment, Acute psychosis Disposition: ADMITTED IP TO THIS HOSP Condition: Stable
--- NOTE | 2022-06-14 20:13 | CT ---
EXAMINATION TYPE: CT brain reeseine wo con DATE OF EXAM: 06/14/2022 COMPARISON: NONE HISTORY: Pain after trauma CT DLP: 1353.2 mGycm. Automated Exposure Control for Dose Reduction was Utilized. TECHNIQUE: CT scan of the head and cervical spine are performed without contrast. FINDINGS: There is no acute intracranial hemorrhage, mass effect, or midline shift identified. The ventricles and sulci are within normal limits in size. The globes are intact and the visualized sin uses are clear. Cervical spine is visualized in its entirety from C1 through upper thoracic levels and demonstrates s atisfactory alignment without evidence of acute fracture or dislocation. Prevertebral soft tissue ap pears within normal limits. The C1-C2 articulation is unremarkable. IMPRESSION: 1. There is no acute fracture or dislocation evident in the cervical spine. 2. No acute intracranial hemorrhage, mass effect, or midline shift is seen.
[2022-06-14] MEDS ORDERED: HALOPERIDOL LACTATE 5 MG/ML 1 ML VIAL IM PRN (21:16)
[2022-06-14] MEDS ORDERED: MAGNESIUM HYDROXIDE 2,400 MG/10 ML CUP PO PRN (21:16)
[2022-06-14] MEDS ORDERED: ACETAMINOPHEN TAB 325 MG TAB PO PRN (21:16)
[2022-06-14] MEDS ORDERED: MAG HYDROX/AL HYDROX/SIMETH 30 ML CUP PO PRN (21:16)
[2022-06-14] MEDS ORDERED: LORazepam 2 MG/ML INJ IM PRN (21:19)
[2022-06-15] MEDS: NICOTINE 14MG/24HR PATCH TRANSDERM SCH (03:52)
[2022-06-15] MEDS: LORazepam 1 MG TAB PO PRN ×2 (03:53→16:41)
[2022-06-15] MEDS: haloperidoL 5 MG TAB PO PRN ×2 (04:08→16:41)
[2022-06-15] MEDS ORDERED: chlorproMAZINE 25 MG TAB PO STA (05:19)
[2022-06-15] MEDS ORDERED: chlorproMAZINE 25 MG/ML 2 ML AMP IM PRN (05:19)
[2022-06-15] MEDS ORDERED: diphenhydrAMINE 50 MG CAP PO PRN (05:22)
[2022-06-15] MEDS ORDERED: diphenhydrAMINE 50 MG/ML 1 ML VIAL IM PRN (05:22)
--- NOTE | 2022-06-15 14:10 | P.HP ---
Psychiatric H&P - . H&P Date: 06/15/22 History & Physical: Allergies Allergy/AdvReac Type Severity Reaction Status Date / Time No Known Allergies Allergy Verified 06/15/22 00:39 Vital Signs Temp 97.7 F 06/15/22 14:05 Pulse 93 06/15/22 14:05 Resp 16 06/15/22 14:05 BP 130/69 06/15/22 14:05 Pulse Ox 97 06/15/22 14:05 FiO2 Intake & Output 06/14/22 06/15/22 06/15/22 18:59 06:59 18:59 Weight 74.843 kg 74.843 kg Laboratory Last Values WBC 6.5 k/uL (3.8-10.6) 06/14/22 18:45 RBC 5.84 m/uL (4.30-5.90) 06/14/22 18:45 Hgb 16.2 gm/dL (13.0-17.5) 06/14/22 18:45 Hct 48.8 % (39.0-53.0) 06/14/22 18:45 MCV 83.6 fL (80.0-100.0) 06/14/22 18:45 MCH 27.7 pg (25.0-35.0) 06/14/22 18:45 MCHC 33.2 g/dL (31.0-37.0) 06/14/22 18:45 RDW 13.9 % (11.5-15.5) 06/14/22 18:45 Plt Count 251 k/uL (150-450) 06/14/22 18:45 MPV 6.8 06/14/22 18:45 Neutrophils % 61 % 06/14/22 18:45 Lymphocytes % 26 % 06/14/22 18:45 Monocytes % 9 % 06/14/22 18:45 Eosinophils % 1 % 06/14/22 18:45 Basophils % 1 % 06/14/22 18:45 Neutrophils # 4.0 k/uL (1.3-7.7) 06/14/22 18:45 Lymphocytes # 1.7 k/uL (1.0-4.8) 06/14/22 18:45 Monocytes # 0.6 k/uL (0-1.0) 06/14/22 18:45 Eosinophils # 0.1 k/uL (0-0.7) 06/14/22 18:45 Basophils # 0.0 k/uL (0-0.2) 06/14/22 18:45 Sodium 136 mmol/L (137-145) L 06/14/22 18:45 Potassium 4.3 mmol/L (3.5-5.1) 06/14/22 18:45 Chloride 100 mmol/L (98-107) 06/14/22 18:45 Carbon Dioxide 22 mmol/L (22-30) 06/14/22 18:45 Anion Gap 14 mmol/L 06/14/22 18:45 BUN 23 mg/dL (9-20) H 06/14/22 18:45 Creatinine 1.05 mg/dL (0.66-1.25) 06/14/22 18:45 Est GFR (CKD-EPI)AfAm >90 (>60 ml/min/1.73 sqM) 06/14/22 18:45 Est GFR (CKD-EPI)NonAf >90 (>60 ml/min/1.73 sqM) 06/14/22 18:45 Glucose 84 mg/dL (74-99) 06/14/22 18:45 Calcium 9.8 mg/dL (8.4-10.2) 06/14/22 18:45 Serum Alcohol <10 mg/dL 06/14/22 18:45 Coronavirus (PCR) Not Detected (Not Detectd) 06/14/22 20:36 06/15/22 14:10 IDENTIFYING DATA: Patient is a single, unemployed, 27-year-old male with significant history of polysubstance abuse who presented to the hospital for acute psychotic behavior. HPI: Patient presented to the hospital from longterm due to erratic behaviors and auditory hallucinations. The patient was brought to longterm after police were notified for possible mental health crisis. The patient apparently was noted to be banging his head constantly on the concrete driveway. The police ended up arresting the patient as he had an outstanding warrant for carrying a concealed weapon. The patient reportedly has been hearing voices for many months and has been trying to get help. The patient has been in the ED twice this year for mental health evaluation. When evaluated in the emergency department by the EPS nurse, the patient was noted to be aggressive and crying. He endorsed auditory hallucinations. When admitted to the psychiatric unit, the patient did have an episode of agitation where he began to bang his head constantly on the wall and was reportedly extremely paranoid. He kept screaming at "[place]." He constantly stated that "if they come after me I will bite their throats until they bleed to ." He was noted to be screaming and yelling loudly. The patient received Thorazine and Benadryl. Upon evaluation by this provider, the patient reports that he is upset that police have been involved and that they had no right to arrest him. He does report that he has been experiencing psychotic symptoms and auditory hallucinations earlier this year and has been trying to get help for this. He reports that the auditory hallucinations began worsening significantly after he was incarcerated prior to this admission. The patient reports that his mental health has been in decline over the last 2 years after his fianc and child left him. He reports they left him due to his substance abuse. He reports that he was engaging in heavy methamphetamine and opiate abuse up until 2 years ago. Currently, the patient is denying any suicidal or homicidal ideation, intention, and/or plan however states that if police were to come and pick him up, that he will "bite them and one of them will if they try taking me." The patient is agreeable to medications at this time. PAST PSYCHIATRIC HISTORY: Patient states that he has no previous psychiatric history. Patient denies being on any psychiatric medications. Patient denies any previous psychiatric hospitalizations. Patient denies any psychiatric outpatient follow-up. Patient denies any history of suicide attempts in the past. PMH: Past Medical History: No Reported History, Hypertension Additional Past Medical History / Comment(s): CELLULITIS, History of Any Multi-Drug Resistant Organisms: MRSA Date of last positivie culture/infection: September 2021 Past Surgical History: No Surgical Hx Reported Additional Past Surgical History / Comment(s): left hand surgery to drain infection Past Psychological History: Anxiety Smoking Status: Current every day smoker Past Alcohol Use History: Daily Past Drug Use History: Marijuana ALLERGIES: NO KNOWN DRUG ALLERGIES CHEMICAL DEPENDENCY HISTORY: Patient reports a history of methamphetamine and opiate abuse 2 years ago. He currently denies any substance use. Reports tobacco use. He denies any illicit drug use. FAMILY PSYCHIATRIC/SUBSTANCE USE HISTORY: Patient reportedly has uncles who have been diagnosed with schizophrenia SOCIAL HISTORY: Patient is currently in longterm hold due to unlawful possession of a firearm. Patient is reportedly single. Social history was limited to the patient's initial presentation as he was quite fatigued after receiving Thorazine and Benadryl last night. MENTAL STATUS EXAM: General Appearance: Patient appears to be stated age is alert, directable, and attempts to cooperate. Patient appears to have a slightly disheveled hygiene and grooming. The patient has multiple tattoos including a swastika on his finger Behavior: Patient displays psychomotor agitation. Speech: Patient's speech is fluent and nonpressured. Mood/Affect: Patient reports their mood is "pissed off." Affect is unpredictable and angry. Suicidality/Homicidality: Patient is currently denying any suicidal ideation. He reports homicidal ideation towards police. Perceptions: Patient denies any visual hallucinations and denies any auditory hallucinations Though content/process: There is no evidence of any delusional thought content and thought process is linear and goal-directed. Memory and concentration: AOX3, grossly intact for the purposes of this session. Can spell "WORLD" backwards Judgment and insight: poor STRENGTHS/WEAKNESSES: Unable to identify patient's strengths at this time. Weakness is that the patient is currently longterm hold and displays and endorses significant antisocial behaviors. INTELLECT: average IMPRESSIONS: Brief psychotic episode versus schizophreniform Rule out Antisocial personality disorder / Oppositional Defiant Disorder PLAN: -Patient is admitted under voluntary status to [facility] for stabilization of psychiatric symptoms and safety. Patient signed adult voluntary form and medication consent and is placed in patient's chart. -RECOMMENDED DO NOT INFORM OF [facility] HOLD. PATIENT IS VERY REACTIVE AND HOMICIDAL TOWARDS POLICE. This does not appear to be due to psychotic pathology but rather antisocial behavior. -Medications : Will start patient on Thorazine 50 mg by mouth twice a day for acute psychosis -Ativan and Thorazine PRN for agitation/aggression -Patient was counselled on substance abuse and desired to cut back on use -Patient was informed of the risks, benefits and side effects of the medication and patient verbally consented to taking the medications. Patient signed med consent form and was placed in chart. -Internal Medicine consult to perform medical evaluation and physical. -NRT - nicotine patch -SW on board for discharge planning. Encourage patient to participate in groups to work on coping skills. 06/15/22 14:10
[2022-06-15 14:21] LABS: Basophils % (A) 1 %; Eosinophils # (A) 0.1 k/uL (0-0.7); Eosinophils % (A) 2 %; HCT 48.5 % (39.0-53.0); HGB 15.7 gm/dL (13.0-17.5); Lymphocytes # (A) 1.5 k/uL (1.0-4.8); Lymphocytes % (A) 42 %; MCH 27.1 pg (25.0-35.0); MCHC 32.3 g/dL (31.0-37.0); MCV 83.8 fL (80.0-100.0); Mean Platelet Volume 6.9; Monocytes # (A) 0.3 k/uL (0-1.0); Monocytes % (A) 8 %; Neutrophils # (A) 1.6 k/uL (1.3-7.7); Neutrophils % (A) 46 %; Platelet Count 226 k/uL (150-450); RBC 5.79 m/uL (4.30-5.90); RDW 13.6 % (11.5-15.5); WBC 3.6 k/uL (3.8-10.6)
[2022-06-15 14:35] LABS: ALT 21 U/L (4-49); AST 28 U/L (17-59); African American GFR (CKD) >90 (>60 ml/min/1.73 sqM); Albumin 4.6 g/dL (3.5-5.0); Alkaline Phosphatase 77 U/L (38-126); Anion Gap 11 mmol/L; Bilirubin, Delta 0.2 mg/dL (0.0-0.2); Bilirubin,Unconjugated 1.2 mg/dL (0.0-1.1); Blood Urea Nitrogen 19 mg/dL (9-20); Calcium 8.9 mg/dL (8.4-10.2); Carbon Dioxide 20 mmol/L (22-30); Chloride 104 mmol/L (98-107); Glucose 90 mg/dL (74-99); Non-African American GFR(CKD) >90 (>60 ml/min/1.73 sqM); Potassium 4.2 mmol/L (3.5-5.1); Sodium 135 mmol/L (137-145); Total Bilirubin 1.4 mg/dL (0.2-1.3); Total Protein 7.2 g/dL (6.3-8.2)
[2022-06-15 16:49] LABS: Appearance,Urine Clear (Clear); Bilirubin,Urine Negative (Negative); Blood,Urine Negative (Negative); Color,Urine Yellow; Glucose,Urine (UA) Negative (Negative); Ketones,Urine Trace (Negative); Leukocyte Esterase,Urine Negative (Negative); Nitrite,Urine Negative (Negative); Protein,Urine Negative (Negative); Specific Gravity,Urine 1.018 (1.001-1.035); Urobilinogen,Urine <2.0 mg/dL (<2.0)
--- NOTE | 2022-06-15 17:07 | P.HPMEDMHU ---
History of Present Illness H&P Date: 06/15/22 Chief Complaint: Patient admitted to the psych unit for psychotic episode Patient is a 27-year-old male with a past medical history of schizophrenia who was admitted to the psych unit for psychotic episode. Patient currently states that he just took his medications. Patient appears calm. Patient denies any shortness of breath chest pain nausea vomiting or diarrhea. Review of Systems 10 ROS reviewed and are negative except as noted in HPI Past Medical History Past Medical History: No Reported History, Hypertension Additional Past Medical History / Comment(s): CELLULITIS, History of Any Multi-Drug Resistant Organisms: MRSA Date of last positivie culture/infection: September 2021 MDRO Source:: L hand Past Surgical History: No Surgical Hx Reported Additional Past Surgical History / Comment(s): left hand surgery to drain infection Smoking Status: Current every day smoker Medications and Allergies Home Medications Medication Instructions Recorded Confirmed Type Cyclobenzaprine [Flexeril] 10 mg PO TID PRN #20 tab 05/16/22 06/14/22 Rx Ibuprofen [Motrin] 600 mg PO Q8HR PRN #30 tab 05/16/22 06/14/22 Rx Allergies Allergy/AdvReac Type Severity Reaction Status Date / Time No Known Allergies Allergy Verified 06/15/22 00:39 Physical Exam Osteopathic Statement: *. No significant issues noted on an osteopathic structural exam other than those noted in the History and Physical/Consult. Vitals: Vital Signs Temp Pulse Pulse Resp BP BP Pulse Ox 06/15/22 14:05 97.7 F 93 16 130/69 97 06/15/22 13:50 43 L 12 83/46 98 06/14/22 21:30 97.4 F L 72 18 113/83 98 06/14/22 21:20 16 96 06/14/22 17:32 98.2 F 115 H 22 151/104 100 General: [Alert and oriented, well nourished, no acute distress]. Eye: [PERRL, EOMI, normal conjunctiva]. HENT: [Normocephalic, clear tympanic membranes, normal hearing, moist oral mucosa, no scleral icterus, no sinus tenderness]. Neck: [Supple, non-tender, no carotid bruits, no JVD, no lymphadenopathy]. Lungs: [Clear to auscultation and percussion, non-labored respiration]. Heart: [Normal rate, regular rhythm, no murmur, gallop or edema]. Abdomen: [Soft, non-tender, non-distended, normal bowel sounds, no masses]. Musculoskeletal: [Normal range of motion and strength, no tenderness or swelling]. Skin: [Skin is warm, dry and pink, no rashes or lesions]. Neurologic: [Awake, alert, and oriented X3, CN II-XII intact]. Psychiatric: [Cooperative, appropriate mood and affect]. Cranial Nerve Examination - Cranial Nerves Cranial Nerve I- Olfactory: Intact Cranial Nerve II- Optic: Intact Cranial Nerve III- Oculomotor: Intact Cranial Nerve IV- Trochlear: Intact Cranial Nerve V- Trigeminal: Intact Cranial Nerve - Abducens: Intact Cranial Nerve VII- Facial: Intact Cranial Nerve VIII- Auditory: Intact Cranial Nerve IX- Glossopharyngeal: Intact Cranial Nerve X- Vagus: Intact Cranial Nerve XI- Accessory: Intact Cranial Nerve XII- Hypoglossal: Intact Results CBC & Chem 7: 06/15/22 13:45 06/15/22 13:32 Labs: Abnormal Lab Results - Last 24 Hours (Table) 06/14/22 06/15/22 06/15/22 Range/Units 18:45 13:32 13:45 WBC 3.6 L (3.8-10.6) k/uL Sodium 136 L 135 L (137-145) mmol/L Carbon Dioxide 20 L (22-30) mmol/L BUN 23 H (9-20) mg/dL Total Bilirubin 1.4 H (0.2-1.3) mg/dL Unconjugated Bilirubin 1.2 H (0.0-1.1) mg/dL TSH 0.320 L (0.465-4.680) mIU/L Urine Ketones (Negative) 06/15/22 Range/Units 16:44 WBC (3.8-10.6) k/uL Sodium (137-145) mmol/L Carbon Dioxide (22-30) mmol/L BUN (9-20) mg/dL Total Bilirubin (0.2-1.3) mg/dL Unconjugated Bilirubin (0.0-1.1) mg/dL TSH (0.465-4.680) mIU/L Urine Ketones Trace H (Negative) Thrombosis Risk Factor Assmnt - Choose All That Apply Any of the Below Risk Factors Present?: No Other Risk Factors: No Other congenital or acquired thrombophilia - If yes, enter type in comment: No Thrombosis Risk Factor Assessment Level: Very Low Risk Assessment and Plan Assessment: Acute psychosis with auditory hallucination -Your psychiatric management Mild leukopenia -Patient has no signs or symptoms of infection. No further workup needed at this time. Follow up outpatient with PCP Low TSH -Check free T4 level Thank you for the consult. Please do not hesitate to contact us with any questions
[2022-06-15] MEDS: chlorproMAZINE 25 MG TAB PO SCH (21:04)
[2022-06-16 00:29] LABS: Chol/HDL Ratio 3.75 Ratio; LDL Cholesterol,Calculated 91.6 mg/dL (0.0-131.0); VLDL Calculation 12.52 mg/dL (5.00-40.00)
[2022-06-16] MEDS: chlorproMAZINE 25 MG TAB PO SCH (08:27)
[2022-06-16] MEDS: NICOTINE 14MG/24HR PATCH TRANSDERM SCH (08:27)
--- NOTE | 2022-06-16 12:26 | P.PN ---
Subjective Progress Note Date: 06/16/22 Principal diagnosis: Brief reactive psychosis antisocial personality Subjective the patient says that he lives in a volatile situation. His girlfriend has a brain tumor the keeps growing back. The tumor causes hallucinations and agitation. He is also easily agitated and he broken off with his girlfriend until he gets more stable. So that when she has her ups and downs he doesn't have ups and downs with her. So he is committed to trying to get some help. He is somewhat lethargic and says he hasn't slept well for a couple of days but he was fast asleep when I came to see him at noon. Objective: He is on Thorazine 50 mg twice a day tolerated fairly well and he is prior sleepy in [place] because he has been sleeping and now is starting to slow down a little. He was lethargic but he came to talk to me that to sit on the edge of the bed for a little bit to get his balance. He says I can't talk very well now because I'm still half-asleep. He denies any psychotic symptoms any years to hurt anybody including himself. Assessment I think that Thorazine is helping we will pry need to move it all to the evening so is not too sleepy but it could be that he is just finally slowing down enough to get into and with his exhaustion. Plan: No change for now I'll talk to him tomorrow we may adjust the Thorazine some. He is okay was taking Thorazine and uncles schizophrenic who took Thorazine and did well. Objective - Vital Signs Vital signs: Vital Signs Temp 97.7 F 06/15/22 14:05 Pulse 93 06/15/22 14:05 Resp 16 06/15/22 14:05 BP 130/69 06/15/22 14:05 Pulse Ox 97 06/15/22 14:05 FiO2 - Labs CBC & Chem 7: 06/15/22 13:45 06/15/22 13:32 Labs: Abnormal Lab Results - Last 24 Hours (Table) 06/15/22 06/15/22 06/15/22 Range/Units 13:32 13:45 16:44 WBC 3.6 L (3.8-10.6) k/uL Sodium 135 L (137-145) mmol/L Carbon Dioxide 20 L (22-30) mmol/L Total Bilirubin 1.4 H (0.2-1.3) mg/dL Unconjugated Bilirubin 1.2 H (0.0-1.1) mg/dL HDL Cholesterol 37.90 L (40.00-60.00) mg/dL TSH 0.320 L (0.465-4.680) mIU/L Urine Ketones Trace H (Negative)
[2022-06-16] MEDS: LORazepam 1 MG TAB PO PRN ×2 (13:43→18:44)
[2022-06-16] MEDS: haloperidoL 5 MG TAB PO PRN ×2 (13:43→18:44)
[2022-06-16] MEDS: BENZTROPINE 2 MG/2 ML AMP IM SCH ×2 (15:15→15:21)
--- NOTE | 2022-06-16 15:16 | P.PN ---
Subjective Progress Note Date: 06/16/22 Principal diagnosis: Brief reactive psychosis antisocial personality Subjective the patient says that he lives in a volatile situation. His girlfriend has a brain tumor the keeps growing back. The tumor causes hallucinations and agitation. He is also easily agitated and he broken off with his girlfriend until he gets more stable. So that when she has her ups and downs he doesn't have ups and downs with her. So he is committed to trying to get some help. He is somewhat lethargic and says he hasn't slept well for a couple of days but he was fast asleep when I came to see him at noon. Objective: He is on Thorazine 50 mg twice a day tolerated fairly well and he is prior sleepy in [place] because he has been sleeping and now is starting to slow down a little. He was lethargic but he came to talk to me that to sit on the edge of the bed for a little bit to get his balance. He says I can't talk very well now because I'm still half-asleep. He denies any psychotic symptoms any years to hurt anybody including himself. Assessment I think that Thorazine is helping we will pry need to move it all to the evening so is not too sleepy but it could be that he is just finally slowing down enough to get into and with his exhaustion. Plan: No change for now I'll talk to him tomorrow we may adjust the Thorazine some. He is okay was taking Thorazine and uncles schizophrenic who took Thorazine and did well. The patient came up to me in the [place] and wanted to talk some more. He had some very carrasco things to say. He said "most people always focusing getting out here but I want to focus on doing well" however after talking for a while very logically and calmly he said he started to have a strange feeling in his tongue was getting sick I didn't see any signs of ALLERGIC reaction think he is having EPS from the Thorazine so got a hold the Thorazine give him a shot of Cogentin in the morning we'll try a different antipsychotic Objective - Vital Signs Vital signs: Vital Signs Temp 97.7 F 06/15/22 14:05 Pulse 93 06/15/22 14:05 Resp 16 06/15/22 14:05 BP 130/69 06/15/22 14:05 Pulse Ox 97 06/15/22 14:05 FiO2 - Labs CBC & Chem 7: 06/15/22 13:45 06/15/22 13:32 Labs: Abnormal Lab Results - Last 24 Hours (Table) 06/15/22 06/15/22 Range/Units 13:32 16:44 HDL Cholesterol 37.90 L (40.00-60.00) mg/dL Urine Ketones Trace H (Negative)
[2022-06-16] MEDS ORDERED: BENZTROPINE 2 MG/2 ML AMP IM PRN (17:29)
[2022-06-16 18:27] LABS: Urine Alcohol Negative (Negative); Urine Barbiturate Negative (Negative); Urine Cocaine Negative (Negative); Urine Methadone Negative (Negative); Urine Opiates Negative (Negative); Urine Phencyclidine Negative (Negative)
[2022-06-16] MEDS ORDERED: BENZTROPINE 2 MG/2 ML AMP IM ONE (19:39)
[2022-06-17] MEDS: NICOTINE 14MG/24HR PATCH TRANSDERM SCH (08:18)
--- NOTE | 2022-06-17 10:41 | P.PN ---
Subjective Progress Note Date: 06/17/22 Principal diagnosis: Brief reactive psychosis antisocial personality Subjective: The patient talked to his girlfriend and they worked out an arrangement where they're not likely to trigger each other. She'll be living with her mom he'll have his own place just get together for enjoyment and fellowship he does feel that the medicine has been helpful even though it caused EPS. He was taking both when necessary Haldol and Thorazine and were not sure which one didn't but he had a lot of trouble with thick tongue however he says that he feels a lot calmer now and would like to take something for a while. He says that he was able to sleep last night Objective: He is on Thorazine 50 mg twice a day tolerated fairly well and he is prior sleepy in [place] because he has been sleeping and now is starting to slow down a little. He was lethargic but he came to talk to me that to sit on the edge of the bed for a little bit to get his balance. He says I can't talk very well now because I'm still half-asleep. He denies any psychotic symptoms any years to hurt anybody including himself. Assessment: I do think this is brief reactive psychosis but I think he should continue some medicine at least for a couple weeks during transition and then see if he can come off now I'll talk to him tomorrow we may adjust the Thorazine some. He is okay was taking Thorazine and uncles schizophrenic who took Thorazine and did well. Plan: We will discontinue, when necessary Haldol, give him some Abilify 5 now and then 5 mg each morning. Objective - Vital Signs Vital signs: Vital Signs Temp 98.5 F 06/17/22 09:37 Pulse 103 H 06/17/22 09:37 Resp 16 06/17/22 09:37 BP 108/62 06/17/22 09:37 Pulse Ox 97 06/15/22 14:05 FiO2 Intake & Output 06/16/22 06/17/22 06/17/22 18:59 06:59 18:59 Weight 73.7 kg - Labs CBC & Chem 7: 06/15/22 13:45 06/15/22 13:32 Labs: Abnormal Lab Results - Last 24 Hours (Table) 07/29/22 Range/Units 16:44 Ur Amphetamine Screen Positive A (Negative) U Cannabinoids Screen Positive A (Negative)
[2022-06-17] MEDS ORDERED: diphenhydrAMINE 50 MG/ML 1 ML VIAL ONE (16:25)
[2022-06-17 16:31] VITALS: RESP 14
[2022-06-18 07:02] VITALS: BP 110/63; PULSE 63; TEMP 97.9
[2022-06-18] MEDS: NICOTINE 14MG/24HR PATCH TRANSDERM SCH (08:25)
[2022-06-18] MEDS ORDERED: ARIPiprazole 5 MG TAB PO SCH (09:00)
--- NOTE | 2022-06-18 12:44 | P.DS ---
Providers Date of admission: 06/14/22 21:09 Expected date of discharge: 06/18/22 Attending physician: Keith Hopper MD Consults: 06/14/22 21:16 Consult Physician Routine Consulting Provider: Nat Frazier Consult Reason/Comments: medical H&P Do you want consulting provider notified?: Yes Primary care physician: Stated None - Discharge Diagnosis(es) (1) Brief psychotic disorder Current Visit: Yes Status: Acute Priority: High (2) Amphetamine abuse Current Visit: Yes Status: Acute Priority: High (3) Tobacco use disorder Current Visit: Yes Status: Chronic Priority: Medium (4) Cannabis use disorder Current Visit: Yes Status: Chronic Priority: Medium Hospital Course: Admission HPI: Patient is a single, unemployed, 27-year-old male with significant history of polysubstance abuse who presented to the hospital for acute psychotic behavior. Patient presented to the hospital from shelter due to erratic behaviors and auditory hallucinations. The patient was brought to shelter after police were notified for possible mental health crisis. The patient apparently was noted to be banging his head constantly on the concrete driveway. The police ended up arresting the patient as he had an outstanding warrant for carrying a concealed weapon. The patient reportedly has been hearing voices for many months and has been trying to get help. The patient has been in the ED twice this year for mental health evaluation. When evaluated in the emergency department by the EPS nurse, the patient was noted to be aggressive and crying. He endorsed auditory hallucinations. When admitted to the psychiatric unit, the patient did have an episode of agitation where he began to bang his head constantly on the wall and was reportedly extremely paranoid. He kept screaming at "[place]." He constantly stated that "if they come after me I will bite their throats until they bleed to ." He was noted to be screaming and yelling loudly. The patient received Thorazine and Benadryl. Upon evaluation by this provider, the patient reports that he is upset that police have been involved and that they had no right to arrest him. He does report that he has been experiencing psychotic symptoms and auditory hallucinations earlier this year and has been trying to get help for this. He reports that the auditory hallucinations began worsening significantly after he was incarcerated prior to this admission. The patient reports that his mental health has been in decline over the last 2 years after his fianc and child left him. He reports they left him due to his substance abuse. He reports that he was engaging in heavy methamphetamine and opiate abuse up until 2 years ago. Currently, the patient is denying any suicidal or homicidal ideation, intention, and/or plan however states that if police were to come and pick him up, that he will "bite them and one of them will if they try taking me." The patient is agreeable to medications at this time. Hospital course: Upon admission to the unit patient was initially presenting as agitated, labile, and engaging in self-injurious behavior including bashing his head against the wall. Patient was however directable and agreeable to commence treatment after calming down the night before with the age of IM Thorazine and Benadryl. The patient was agreeable to starting Thorazine orally and nortriptyline address his acute mood symptoms. Patient got along well with other patients on the unit and followed unit protocol. Patient was compliant with the medications and denied any side effects throughout hospital course. Patient was transitioned from Thorazine to Abilify as a patient received numerous Thorazine and Haldol medications which caused the side effect of tongue swelling. This responded well to Benadryl. Patient spoke of his stressors and engaged in therapy both group and individual. Patient was also seen by medical team for history and physical exam. Over the course the hospital physician, the patient became more cooperative and polite and engaged appropriately with staff and peers. He tolerated his medication well. Is currently sisters appetite. On day of discharge, patient is not reporting any symptoms or homicidal ideation, intention, and. He is not reporting any auditory or visual hallucinations. He is denying any paranoia or other delusions. The patient does acknowledge that he will be going to shelter. The patient did test positive for amphetamines prior to this admission and acknowledges that he may have engaged in some substance use provided by a friend although without him knowing. The patient was counseled great length on the importance of medication adherence, outpatient follow-up, and the abstinence of mind altering substances. He will be discharged back to shelter. Mental status exam: General Appearance: Patient appears to be stated age is alert, pleasant, and cooperative. Patient is in no acute distress and has fair hygiene and grooming. Very friendly on approach. Behavior: Patient is calmly seated without any agitated behavior. Speech: Patient's speech is fluent and nonpressured. Mood/Affect: Patient reports their mood is "feeling good", affect is congruent and euthymic. Suicidality/Homicidality: Patient denies having any suicidal or homicidal ideation intent or plan. Perceptions: Patient denies any auditory or visual hallucinations. Though content/process: There is no evidence of any delusional thought content and thought process is linear and goal-directed. The patient appears to be future oriented. Memory and concentration: AOX3, grossly intact for the purposes of this session. Can spell "WORLD" backwards correctly. Judgment and insight: Improved with guarded prognosis Impression: Brief psychotic episode - suspect secondary to substance use and acute stress of incarceration. Cannabis use disorder Tobacco use disorder Plan: -Continue with discharge today as patient has improved and stabilized psychiatrically and is not currently an imminent threat to himself and/or others. Patient will remain at chronically elevated risk due to substance use. -Continue medications: Abilify 5 mg by mouth daily for mood stabilization/psychosis Cogentin 0.5 mg by mouth twice a day for 15 days. Benadryl 50 mg at bedtime for insomnia/tongue swelling Habitrol patches for Nicotine cessation -Patient was counseled on the need for medication compliance and appropriate follow-up at mental health and also primary care for medical issues. Patient verbalized understanding and agreed. -Social work to arrange for and conduct family meeting to ensure safety upon discharge and answer any questions/concerns. Social work also to arrange for patients follow up appointments with [facility] for psychiatric care along with follow up with primary care provider. -Patient counseled on abstaining from recreational drugs and marijuana and alcohol. Was informed/educated on the adverse effects on their physical and men stoney health. Patient verbally agreed and understood. Patient was offered substance abuse treatment however declined at this time. -Patient was instructed to return to the hospital or seek immediate medical care if their psychiatric or medical symptoms do worsen or reoccur. -Psychoeducation and supportive therapy provided to patient. Risks and benefits of pharmacological treatment versus the risks and benefits of nontreatment weight and discussed. Informed consent discussion held. Common side effects of psychotropics discussed such as, but not limited to headache, GI disturbance, sexual dysfunction, movement disorders, sedation, and orthostatic hypotension. Life threatening and blackbox warnings of prescribed medications also discussed. Potential risks of operating a vehicle or heavy machinery discussed with patient at length. Advised on importance of compliance and a reliable and responsible manner. Patient advised to review FDA consumer labeling of all medications prior to taking. Patient verbalized understanding of potential risks, and agrees with current treatment plan. Patient advised to medically contact physician/emergency personnel if any acute changes in condition occur. Vital Signs Temp 97.9 F 06/18/22 06:24 Pulse 63 06/18/22 06:24 Resp 14 06/18/22 06:24 BP 110/63 06/18/22 06:24 Pulse Ox 100 06/17/22 16:28 FiO2 Intake & Output 06/17/22 06/18/22 06/18/22 18:59 06:59 18:59 Weight 73.7 kg Laboratory Results WBC 3.6 k/uL (3.8-10.6) L 06/15/22 13:45 RBC 5.79 m/uL (4.30-5.90) 06/15/22 13:45 Hgb 15.7 gm/dL (13.0-17.5) 06/15/22 13:45 Hct 48.5 % (39.0-53.0) 06/15/22 13:45 MCV 83.8 fL (80.0-100.0) 06/15/22 13:45 MCH 27.1 pg (25.0-35.0) 06/15/22 13:45 MCHC 32.3 g/dL (31.0-37.0) 06/15/22 13:45 RDW 13.6 % (11.5-15.5) 06/15/22 13:45 Plt Count 226 k/uL (150-450) 06/15/22 13:45 MPV 6.9 06/15/22 13:45 Neutrophils % 46 % 06/15/22 13:45 Lymphocytes % 42 % 06/15/22 13:45 Monocytes % 8 % 06/15/22 13:45 Eosinophils % 2 % 06/15/22 13:45 Basophils % 1 % 06/15/22 13:45 Neutrophils # 1.6 k/uL (1.3-7.7) 06/15/22 13:45 Lymphocytes # 1.5 k/uL (1.0-4.8) 06/15/22 13:45 Monocytes # 0.3 k/uL (0-1.0) 06/15/22 13:45 Eosinophils # 0.1 k/uL (0-0.7) 06/15/22 13:45 Basophils # 0.0 k/uL (0-0.2) 06/15/22 13:45 Sodium 135 mmol/L (137-145) L 06/15/22 13:32 Potassium 4.2 mmol/L (3.5-5.1) 06/15/22 13:32 Chloride 104 mmol/L (98-107) 06/15/22 13:32 Carbon Dioxide 20 mmol/L (22-30) L 06/15/22 13:32 Anion Gap 11 mmol/L 06/15/22 13:32 BUN 19 mg/dL (9-20) 06/15/22 13:32 Creatinine 0.94 mg/dL (0.66-1.25) 06/15/22 13:32 Est GFR (CKD-EPI)AfAm >90 (>60 ml/min/1.73 sqM) 06/15/22 13:32 Est GFR (CKD-EPI)NonAf >90 (>60 ml/min/1.73 sqM) 06/15/22 13:32 Glucose 90 mg/dL (74-99) 06/15/22 13:[address] Glu mg/dL 104 06/15/22 13:45 Hemoglobin A1c 5.2 % (0.0-6.0) 06/15/22 13:45 Calcium 8.9 mg/dL (8.4-10.2) 06/15/22 13:32 Total Bilirubin 1.4 mg/dL (0.2-1.3) H 06/15/22 13:32 Conjugated Bilirubin 0.0 mg/dL (0.0-0.3) 06/15/22 13:32 Unconjugated Bilirubin 1.2 mg/dL (0.0-1.1) H 06/15/22 13:32 Delta Bilirubin 0.2 mg/dL (0.0-0.2) 06/15/22 13:32 AST 28 U/L (17-59) 06/15/22 13:32 ALT 21 U/L (4-49) 06/15/22 13:32 Alkaline Phosphatase 77 U/L (38-126) 06/15/22 13:32 Total Protein 7.2 g/dL (6.3-8.2) 06/15/22 13:32 Albumin 4.6 g/dL (3.5-5.0) 06/15/22 13:32 Triglycerides 62.60 mg/dL (0.00-149.00) 06/15/22 13:32 Cholesterol 142.00 mg/dL (0.00-200.00) 06/15/22 13:32 LDL Cholesterol, Calc 91.6 mg/dL (0.0-131.0) 06/15/22 13:32 VLDL Cholesterol, Calc 12.52 mg/dL (5.00-40.00) 06/15/22 13:32 HDL Cholesterol 37.90 mg/dL (40.00-60.00) L 06/15/22 13:32 Cholesterol/HDL Ratio 3.75 Ratio 06/15/22 13:32 TSH 0.320 mIU/L (0.465-4.680) L 06/15/22 13:32 Free T4 1.76 ng/dL (0.78-2.19) 06/15/22 13:32 Urine Color Yellow 06/15/22 16:44 Urine Appearance Clear (Clear) 06/15/22 16:44 Urine pH 6.0 (5.0-8.0) 06/15/22 16:44 Ur Specific [place] 1.018 (1.001-1.035) 06/15/22 16:44 Urine Protein Negative (Negative) 06/15/22 16:44 Urine Glucose (UA) Negative (Negative) 06/15/22 16:44 Urine Ketones Trace (Negative) H 06/15/22 16:44 Urine Blood Negative (Negative) 06/15/22 16:44 Urine Nitrite Negative (Negative) 06/15/22 16:44 Urine Bilirubin Negative (Negative) 06/15/22 16:44 Urine Urobilinogen <2.0 mg/dL (<2.0) 06/15/22 16:44 Ur Leukocyte Esterase Negative (Negative) 06/15/22 16:44 Urine Opiates Screen Negative (Negative) 06/15/22 16:44 Urine Methadone Screen Negative (Negative) 06/15/22 16:44 Ur Propoxyphene Screen Negative (Negative) 06/15/22 16:44 Urine Barbiturates Negative (Negative) 06/15/22 16:44 Ur Phencyclidine Scrn Negative (Negative) 06/15/22 16:44 Ur Amphetamine Screen Positive (Negative) A 06/15/22 16:44 U Benzodiazepines Scrn Negative (Negative) 06/15/22 16:44 Urine Cocaine Screen Negative (Negative) 06/15/22 16:44 U Cannabinoids Screen Positive (Negative) A 06/15/22 16:44 Urine Alcohol Negative (Negative) 06/15/22 16:44 Serum Alcohol <10 mg/dL 06/14/22 18:45 Coronavirus (PCR) Not Detected (Not Detectd) 06/14/22 20:36 Allergies Allergy/AdvReac Type Severity Reaction Status Date / Time No Known Allergies Allergy Verified 06/15/22 00:39 Patient Condition at Discharge: Stable Plan - Discharge Summary Discharge Rx Participant: No New Discharge Prescriptions: New ARIPiprazole [Abilify] 5 mg PO DAILY 30 Days tab Benztropine Mesylate [Cogentin] 0.5 mg PO BID 15 Days tablet diphenhydrAMINE HCL [Benadryl] 50 mg PO HS #30 tab Nicotine 14Mg/24Hr Patch [Habitrol] 1 patch TRANSDERM DAILY 15 Days patch Discontinued Cyclobenzaprine [Flexeril] 10 mg PO TID PRN #20 tab PRN Reason: Spasms Ibuprofen [Motrin] 600 mg PO Q8HR PRN #30 tab PRN Reason: Pain Discharge Medication List ARIPiprazole [Abilify] 5 mg PO DAILY 30 Days tab 06/18/22 [Rx] Benztropine Mesylate [Cogentin] 0.5 mg PO BID 15 Days tablet 06/18/22 [Rx] Nicotine 14Mg/24Hr Patch [Habitrol] 1 patch TRANSDERM DAILY 15 Days patch 06/18/22 [Rx] diphenhydrAMINE HCL [Benadryl] 50 mg PO HS #30 tab 06/18/22 [Rx] Follow up Appointment(s)/Referral(s): [facility] [Outside] - 06/18/22 4:00 pm ([facility] shelter services) [facility] [NON-STAFF] - 1 Week Patient Instructions/Handouts: How to Stop Smoking (DC), Psychotic Disorder (DC ) Activity/Diet/Wound Care/Special Instructions: Avoid the use of street drugs and alcohol. Take all prescriptions as prescribed. When you are in need of refills on your medications, please contact your medical provider and/or outpatient psychiatrist to have this done. Please go to scheduled outpatient appointment for aftercare treatment. If symptoms return or become worse, call the crisis line at and/or go to the nearest emergency room for evaluation. Discharge Disposition: DC/TRANSFER COURT/LAW
== END 2022-06-18 14:22 | DRG 885 ==
LOC: EC 17:23 → 3MHU 21:09
PROVIDERS: ADMIT Psychiatry & Neurology Psychiatry; ATTEND Psychiatry & Neurology Psychiatry
DX: F23 Brief psychotic disorder (principal); R45.851 Suicidal ideations; F15.10 Other stimulant abuse, uncomplicated; F60.2 Antisocial personality disorder; Z20.822 Contact with and (suspected) exposure to COVID-19; Z72.811 Adult antisocial behavior; S00.83XA Contusion of other part of head, initial encounter; F12.10 Cannabis abuse, uncomplicated; F41.9 Anxiety disorder, unspecified; G47.00 Insomnia, unspecified; F17.210 Nicotine dependence, cigarettes, uncomplicated; Z71.6 Tobacco abuse counseling; Z56.0 Unemployment, unspecified; Z86.14 Personal history of Methicillin resistant Staphylococcus aureus infection; Z71.51 Drug abuse counseling and surveillance of drug abuser; Z71.41 Alcohol abuse counseling and surveillance of alcoholic; Z81.8 Family history of other mental and behavioral disorders
CPT/HCPCS: 36415; 70450; 72125; 80048; 80053; 80061; 80306; 80320; 81003; 82075; 82248; 83036; 84439; 84443; 85025; 87635; 96374; 99285

== ENCOUNTER 2022-11-24 08:43 | Emergency (ER) | payer OTHER ==
--- NOTE | 2022-11-24 08:58 | ED ---
General Adult HPI - General Stated complaint: chin abscess, ear pain - History of Present Illness Initial comments: Patient seen for advanced triage purposes: 27 year old male presents for pain and swelling in his chin. It started last night. Patient does have a pichardo overlying the area. He also states his ears are swollen and scabbing. It is hard to hear out of his right ear. Rates his pain at a 7/10. Patient is a former meth and heroin user, currently staying at [facility]. - Related Data Previous Rx's Medication Instructions Recorded ARIPiprazole [Abilify] 5 mg PO DAILY 30 Days tab 06/18/22 Benztropine Mesylate [Cogentin] 0.5 mg PO BID 15 Days tablet 06/18/22 Nicotine 14Mg/24Hr Patch [Habitrol] 1 patch TRANSDERM DAILY 15 Days 06/18/22 patch diphenhydrAMINE HCL [Benadryl] 50 mg PO HS #30 tab 06/18/22 Allergies Allergy/AdvReac Type Severity Reaction Status Date / Time No Known Allergies Allergy Verified 11/24/22 08:58 Review of Systems ROS Statement: Those systems with pertinent positive or pertinent negative responses have been documented in the HPI. ROS Other: All systems not noted in ROS Statement are negative. Past Medical History Past Medical History: No Reported History, Hypertension Additional Past Medical History / Comment(s): CELLULITIS, History of Any Multi-Drug Resistant Organisms: MRSA Date of last positivie culture/infection: September 2021 MDRO Source:: L hand Past Surgical History: No Surgical Hx Reported Additional Past Surgical History / Comment(s): left hand surgery to drain infect ion Smoking Status: Current every day smoker Course Vital Signs 11/24/22 08:58 Temperature 98.7 F Pulse Rate 104 H Respiratory 16 Rate Blood Pressure 135/87 O2 Sat by Pulse 99 Oximetry Disposition Clinical Impression: Abscess Disposition: HOME SELF-CARE Is patient prescribed a controlled substance at d/c from ED?: No Referrals: None,Stated [Primary Care Provider] - 1-2 days Time of Disposition: 11:32
[2022-11-24 08:59] VITALS: RESP 16; TEMP 98.7
[2022-11-24] MEDS ORDERED: LIDOCAINE 1%-EPI 1:100,000 20 ML VIAL SQ STA (10:56)
[2022-11-24] MEDS ORDERED: SULFAMETH-TMP DS STARTER PACK 2 TAB BTL PO STA (10:58)
--- NOTE | 2022-11-24 11:40 | ED ---
General Adult HPI - General Chief complaint: Skin/Abscess/Foreign Body Stated complaint: chin abscess, ear pain Time Seen by Provider: 11/24/22 09:15 Source: patient, RN notes reviewed Mode of arrival: ambulatory Limitations: no limitations - History of Present Illness Initial comments: 27 year old male presents for pain and swelling in his chin. It started last night. Patient does have a pichardo overlying the area. He also states his ears are swollen and scabbing. It is hard to hear out of his right ear. Rates his pain at a 7/10. Patient is a former meth and heroin user, [facility] has a history of [facility]. No dental pain, no fevers. Patient has no other complaints at this time including shortness of breath, chest pain, abdominal pain, nausea or vomiting, headache, or visual changes. - Related Data Previous Rx's Medication Instructions Recorded ARIPiprazole [Abilify] 5 mg PO DAILY 30 Days tab 06/18/22 Benztropine Mesylate [Cogentin] 0.5 mg PO BID 15 Days tablet 06/18/22 Nicotine 14Mg/24Hr Patch [Habitrol] 1 patch TRANSDERM DAILY 15 Days 06/18/22 patch diphenhydrAMINE HCL [Benadryl] 50 mg PO HS #30 tab 06/18/22 Mupirocin 2% Oint [Bactroban 2% 1 applic TOPICAL TID 5 Days #22 gm 11/24/22 Oint] Sulfamethox-Tmp 800-160Mg [Bactrim 1 tab PO Q12HR #20 tab 11/24/22 DS 800-160 mg] Allergies Allergy/AdvReac Type Severity Reaction Status Date / Time No Known Allergies Allergy Verified 11/24/22 08:58 Review of Systems ROS Statement: Those systems with pertinent positive or pertinent negative responses have been documented in the HPI. ROS Other: All systems not noted in ROS Statement are negative. Past Medical History Past Medical History: No Reported History, Hypertension Additional Past Medical History / Comment(s): CELLULITIS, History of Any Multi-Drug Resistant Organisms: MRSA Date of last positivie culture/infection: September 2021 MDRO Source:: L hand Past Surgical History: No Surgical Hx Reported Additional Past Surgical History / Comment(s): left hand surgery to drain infection Smoking Status: Current every day smoker General Exam Limitations: no limitations General appearance: alert, in no apparent distress Head exam: Present: atraumatic Eye exam: Present: normal appearance, PERRL, EOMI. Absent: scleral icterus, conjunctival injection ENT exam: Present: normal exam, normal oropharynx, mucous membranes moist, other (Patient has a 3 cm x 2 xm abscess left chin, no dental abscesses. pichardo is overlying the area). Absent: normal external ear exam (patient has scaling of bilateral EACs) Neck exam: Present: normal inspection, tenderness, full ROM Respiratory exam: Present: normal lung sounds bilaterally. Absent: respiratory distress, wheezes Cardiovascular Exam: Present: regular rate, normal rhythm, normal heart sounds Course Vital Signs 11/24/22 08:58 Temperature 98.7 F Pulse Rate 104 H Respiratory 16 Rate Blood Pressure 135/87 O2 Sat by Pulse 99 Oximetry Procedures - Incision & Drainage Consent Obtained: verbal consent Indication: abscess Site: face Size (cm): 3 Anesthetic Used: lidocaine 1%, with epi I&D Cleaning Method: Alcohol Wipe Scalpel Used: #11 I&D Drainage Obtained: Pus, Blood Patient Tolerated Procedure: well, no complications Medical Decision Making - Medical Decision Making Patient seen in ER. Vitals are stable. HPI and physical exam as documented. Incision and drainage of abscess on left chin was performed and patient started on Bactrim and Bactroban. Patient will be given Bactroban for his years. He should follow up for any worsening symptoms. Discussed warm compresses and deficits patient. Was pt. sent in by a medical professional or institution (, PA, FIRST ASSISTANT, urgent care, hospital, or halfway...) When possible be specific @ -no Did you speak to anyone other than the patient for history (EMS, parent, family, police, friend...)? What history was obtained from this source @ -yes, family member Did you review nursing and triage notes (agree or disagree)? Why? @ -[I reviewed and agree with nursing and triage notes] Were old charts reviewed (outside hosp., previous admission, EMS record, old EKG, old radiological studies, urgent care reports/EKG's, halfway records)? Report findings @ -[No old charts were reviewed] Differential Diagnosis (chest pain, altered mental status, abdominal pain women, abdominal pain men, vaginal bleeding, weakness, fever, dyspnea, syncope, heada christine, dizziness, GI bleed, back pain, seizure, CVA, palpatations, mental health)? @ -cellulitis vs abscess - not all inclusive EKG interpreted by me (3pts min.). @ -not done X-rays interpreted by me (1pt min.). @ -not done CT interpreted by me (1pt min.). @ -[None done] U/S interpreted by me (1pt. min.). @ -[None done] What testing was considered but not performed or refused? (CT, X-rays, U/S, labs)? Why? @ -considered a culture but patient has a history of MRSA What meds were considered but not given or refused? Why? @ -[None] Did you discuss the management of the patient with other professionals (professionals i.e. , PA, FIRST ASSISTANT, lab, RT, psych nurse, social work specialist, ward nurse, teacher, press officer, binder caser)? Give summary @ -yes, dr almeida Was smoking cessation discussed for >3mins.? @ -[No] Was critical care preformed (if so, how long)? @ -[No] Were there social determinants of health that impacted care today? How? (Homelessness, low income, unemployed, alcoholism, drug addiction, transportation, low edu. Level, literacy, decrease access to med. care, usp, rehab)? @ -[No] Was there de-escalation of care discussed even if they declined (Discuss DNR or withdrawal of care, Hospice)? DNR status @ -[No] What co-morbidities impacted this encounter? (DM, HTN, Smoking, COPD, CAD, Cancer, CVA, ARF, Chemo, Hep., AIDS, mental health diagnosis, sleep apnea, morbid obesity)? @ -history of drug abuse Was patient admitted / discharged? Hospital course, mention meds given and route, prescriptions, significant lab abnormalities, going to OR and other pertinent info. @ -patient seen in the ER, incision and drainage performed of the chin, started on antibiotics Undiagnosed new problem with uncertain prognosis? @ -[No] Drug Therapy requiring intensive monitoring for toxicity (Heparin, Nitro, Insulin, Cardizem)? @ -[No] Were any procedures done? @ -yes, incision and drainage Diagnosis/symptom? @ -abscess, cellulitis Acute, or Chronic, or Acute on Chronic? @ -acute Uncomplicated (without systemic symptoms) or Complicated (systemic symptoms)? @ -uncomplicated Side effects of treatment? @ -pain, bleeding Exacerbation, Progression, or Severe Exacerbation? @ -[No] Poses a threat to life or bodily function? How? (Chest pain, [place], [place], pneumonia, PE, COPD, DKA, ARF, appy, cholecystitis, CVA, Diverticulitis, Homicidal, Suicidal, threat to staff... and all critical care pts) @ -[No] Disposition Clinical Impression: Abscess, History of MRSA infection Disposition: HOME SELF-CARE Condition: Good Instructions (If sedation given, give patient instructions): Abscess Incision and Drainage (ED), Warm Compress or Soak (ED) Additional Instructions: Please take antibiotics as directed. Apply antibiotic ointment to the arch and in your ears. Follow-up with your doctor this week. If you have worsening symptoms return to the emergency room. Make sure to do warm compresses every 2 hours. Prescriptions: Sulfamethox-Tmp 800-160Mg [Bactrim DS 800-160 mg] 1 tab PO Q12HR #20 tab Mupirocin 2% Oint [Bactroban 2% Oint] 1 applic TOPICAL TID 5 Days #22 gm Is patient prescribed a controlled substance at d/c from ED?: No Referrals: Haroldo Armas MD [STAFF PHYSICIAN] - 1-2 days Time of Disposition: 11:47
[2022-11-24 11:55] VITALS: BP 138/79; PULSE 98
== END 2022-11-24 11:55 | disposition home or self-care (01) ==
LOC: EC 08:43
DX: L02.01 Cutaneous abscess of face (principal); Z86.14 Personal history of Methicillin resistant Staphylococcus aureus infection; I10 Essential (primary) hypertension; F17.200 Nicotine dependence, unspecified, uncomplicated; Z79.899 Other long term (current) drug therapy
CPT/HCPCS: 10060; 99282